=== PATIENT | female | born 1970 | race Caucasian/White ===

== ENCOUNTER → 2023-06-11 | Outpatient (CLI) | payer OTHER, SELFPAY ==
[2023-06-11 12:52] LABS: Absolute Lymphocyte Count 1.85 X10^3/uL (0.83-4.51); Absolute Neutrophil Count 3.8 X10^3/uL (2.0-7.7); Basophil# 0.04 X10^3/uL; Basophil% 0.6 % (0-1); Eosinophil# 0.09 X10^3/uL; Eosinophils% 1.5 % (0-5); Hematocrit 44.8 % (37-47); Hemoglobin 14.1 g/dL (12.0-15.0); Lymphocyte # 1.85 X10^3/ul (0.83-4.51); Lymphocyte % 29.8 % (19-41); Mean Corp Hgb Conc 31.5 g/dL (32-36); Mean Corpuscular Hgb 29.3 pg (27.0-32.0); Mean Corpuscular Volume 93.1 fL (81-99); Mean Platelet Vol. 11.2 fl (6.2-12.0); Monocyte# 0.43 X10^3/uL; Monocyte% 6.9 % (0-10); NRBC Flagged by Analyzer 0 % (0-5); Neutrophil # 3.77 X10^3/uL (2.7-7.7); Neutrophil % 60.9 % (47-70); Platelet Count 338 K/mm3 (150-450); RBC Distribution Width CV 12.8 % (11.6-14.6); RBC Distribution Width SD 44.1 fl (35.1-43.9); Red Blood Count 4.81 M/mm3 (4.2-5.4); White Blood Count 6.2 K/mm3 (4.4-11.0)
[2023-06-11 12:59] LABS: ALB/GLOB Ratio 1.2 RATIO (0.9-2.4); AST(SGOT) 17 U/L (15-37); Alanine Aminotransfer ALT/SGPT 33 U/L (13-56); Albumin, Serum 4.3 g/dL (3.2-5.0); Alkaline Phosphatase 70 U/L (45-117); Anion Gap 4 (5-15); BUN 16 mg/dL (7-18); Calcium,Total 9.6 mg/dL (8.5-10.1); Chloride 105 mmol/L (98-107); EST Glomerular Filtration Rate 79 mL/min (>60); Est Glom Filt Rate - Afr Amer 96 mL/min (>60); Globulin 3.7 g/dL (2.2-4.2); Glucose 93 mg/dL (74-106); Potassium 4.3 mmol/L (3.5-5.1); Sodium Level 139 mmol/L (136-145); Troponin-I HS < 3 pg/mL (3.0-54.0)
[2023-06-11 13:12] LABS: D-Dimer Quantitative (DVT/PE) < 0.27 FEU/ug/m (0.27-0.49)
== END | disposition home or self-care (01) ==
LOC: LABSPEC 12:13
PROVIDERS: PCP Internal Medicine; Referring Provider Internal Medicine; Visit Provider Internal Medicine
DX: R11.0 Nausea (principal)
CPT/HCPCS: 80053; 84484; 85025; 85379

== ENCOUNTER 2024-12-02 05:56 | Day surgery (SDC) | payer OTHER, SELFPAY ==
--- NOTE | 2024-11-29 08:12 | EKG12_ITS ---
Test Reason : PRE OP Blood Pressure : */* mmHG Vent. Rate : 72 BPM Atrial Rate : 72 BPM P-R Int : 152 ms QRS Dur : 94 ms QT Int : 388 ms P-R-T Axes : 80 93 59 degrees QTcB Int : 424 ms Normal sinus rhythm Rightward axis Borderline ECG Confirmed by GERA HUMPHREY, FRANCISCO ([id number]), communications editor EDVIN RIBEIRO ([id number]) on 11/30/2024 7:37:49 AM Referred By: Lexie Vazquez Confirmed By: FRANCISCO BOSS MD
[2024-11-29 08:55] LABS: Hemoglobin 13.4 g/dL (12.0-15.0); Mean Corp Hgb Conc 33.5 g/dL (32-36); Mean Corpuscular Hgb 30.7 pg (27.0-32.0); Mean Corpuscular Volume 91.5 fL (81-99); Mean Platelet Vol. 10.4 fl (6.2-12.0); Platelet Count 331 K/mm3 (150-450); RBC Distribution Width CV 12.7 % (11.6-14.6); RBC Distribution Width SD 42.1 fl (35.1-43.9); Red Blood Count 4.37 M/mm3 (4.2-5.4); White Blood Count 3.5 K/mm3 (4.4-11.0)
[2024-11-29 09:34] LABS: ALB/GLOB Ratio 1.1 RATIO (0.9-2.4); AST(SGOT) 15 U/L (15-37); Alanine Aminotransfer ALT/SGPT 27 U/L (13-56); Albumin, Serum 3.7 g/dL (3.2-5.0); Alkaline Phosphatase 56 U/L (45-117); Anion Gap 3 (5-15); BUN 15 mg/dL (7-18); BUN/Creat Ratio 21.3 RATIO (10-20); Calcium,Total 9.3 mg/dL (8.5-10.1); Chloride 109 mmol/L (98-107); EST Glomerular Filtration Rate 91 mL/min (>60); Est Glom Filt Rate - Afr Amer 111 mL/min (>60); Globulin 3.3 g/dL (2.2-4.2); Glucose 101 mg/dL (74-106); Potassium 4.3 mmol/L (3.5-5.1); Sodium Level 141 mmol/L (136-145)
--- NOTE | 2024-11-29 16:47 | PAT.ANESEVAL ---
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 When Was Last Pacemaker Check QUESTION #4 FULL TEXT: You/Your Family Experience fever (hyperthermia) with Anesthesia Last Oral Intake Last Oral intake: Last Oral Intake NPO since Meds taken in AM with sips of water? Meds patient instructed to take am of surgery PONV PONV - linotype operator: PONV - linotype operator Female Yes 11/18/24 08:31 HX of Motion Sickness No 11/18/24 08:31 HX of N/V After Surgery No 11/18/24 08:31 Non-Smoker Yes 11/18/24 08:31 Duration of Surgery greater No 11/18/24 08:31 than 60 minutes Number of Risk Factors 2 11/18/24 08:31 PONV Score Moderate Risk 11/18/24 08:31 Respiratory Assessment Respiratory Assessment - linotype operator: Respiratory Tract Infection Hx - linotype operator Hx Respiratory Tract Infection No 11/18/24 08:31 STOP Sleep Apnea STOP Sleep Apnea - linotype operator: STOP Sleep Apnea - linotype operator Hx Hypertension No 11/18/24 08:31 Hx Sleep Apnea No 11/18/24 08:31 CPAP BIPAP Do you snore loudly (louder No 11/18/24 08:31 than talking or can be heard Do you often feel tired/ No 11/18/24 08:31 fatigued/ sleepy during daytime? Has anyone observed you stop No 11/18/24 08:31 breathing during sleep? STOP Results Negative 11/18/24 08:31 QUESTION #5 FULL TEXT : Do you snore loudly (louder than talking or can be heard through closed doors)? 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 Specify any problems Hx of Preganancy in last 3 No 11/18/24 08:31 Months Nurse Filling Out Transfusion VLEHVALENCIA 11/18/24 08:31 & Questions: Date: 11/18/24 11/18/24 08:31 Time: 08:41 11/18/24 08:31 Patient unable to answer at this time (ie. 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 History - linotype operator: /Reproductive Hx- linotype operator Hx Now No 11/18/24 08:31 Gestational Age (in weeks): EDC: Hx Hx Para Hx Section SAB PFSH Medical History Post-menopausal Wears glasses Prediabetes High cholesterol Non-smoker Home Medications ?Medication ?Instructions ?Recorded ?Last Taken ?Type ascorbic acid (vitamin C) 1,000 mg 1 g PO DAILY 11/18/24 Unknown History tablet (C-1000) cholecalciferol (vitamin D3) 25 25 mcg PO DAILY 11/18/24 Unknown History mcg (1,000 unit) tablet (Vitamin D3) multivitamin (Daily Multi-Vitamin 1 tab PO DAILY 11/18/24 Unknown History tablet) omega 4-tgh-nit-fish oil 1,200 mg 2 cap PO DAILY 11/18/24 Unknown History (144 mg-216 mg) capsule (Fish Oil) Allergy/AdvReac Type Severity Reaction Status Date / Time No Known Allergies Allergy Verified 11/18/24 08:28 Surgical History History of colonoscopy Social History (System 09/25/21 @ 08:39 by Sherie Esparza) Smoking Status: Never smoker Audit: Pertinent Findings Pertinent Findings EKG Perinent findings: November 29, 2024. Normal sinus rhythm. Right axis deviation. Recommendation Anesthesia Recommendation Anesthesia recommendation: OPTIMIZED for anesthesia
[2024-12-02] VITALS (7 sets, daily range): BP systolic 102–111; BP diastolic 70–82; PULSE 66–93; RESP 14–18; TEMP 35.9–36.3; O2SAT 99–100; BMI 22.0
--- NOTE | 2024-12-02 06:46 | PCM.PRE.AN2 ---
ASA Classification* ASA Classification ASA Classification: 2 Assessment & Plan Anesthesia* Anesthesia Assessment Anesthesia Assessment: Discussed sedation and/or anesthesia options, risks, benefits, and alternatives with patient/parents/legal guardian/POA. Questions invited. The patient/parents/legal guardian/POA seems to understand and agrees to proceed with anesthesia plan. Reviewed the physical assessment, medical history, allergy history and patient home medications list prior to surgery/procedure/anesthetic and documented any changes. Performed airway and anesthesia risk assessments. Anesthesia Type Anesthesia Type: MAC Anesthesia Focused Assessment* Temperature: 97.3 F Pulse Rate: 90 Blood Pressure: 106/82 Respiratory Rate: 16 Pulse Ox: 100 Airway Assessment Mouth opens: >3 cm Mallampati Score: II Focused Labs Anesthesia Preop lab: CBC WBC 3.5 K/mm3 (4.4-11.0) L 11/29/24 08:36 11/29/24 RBC 4.37 M/mm3 (4.2-5.4) 11/29/24 08:36 11/29/24 Hgb 13.4 g/dL (12.0-15.0) 11/29/24 08:36 11/29/24 Hct 40.0 % (37-47) 11/29/24 08:36 11/29/24 Plt Count 331 K/mm3 (150-450) 11/29/24 08:36 11/29/24 CHEMISTRY Potassium 4.3 mmol/L (3.5-5.1) 11/29/24 08:36 11/29/24 Sodium 141 mmol/L (136-145) 11/29/24 08:36 11/29/24 BUN 15 mg/dL (7-18) 11/29/24 08:36 11/29/24 Creatinine 0.70 mg/dL (0.55-1.02) 11/29/24 08:36 11/29/24 Glucose 101 mg/dL (74-106) 11/29/24 08:36 11/29/24 TSH 0.87 uIU/mL (0.358-3.74) 07/09/16 10:33 07/09/16 COAG Pre-Assessment Diagnosis/Proposed Procedure Planned Operative Procedure(s): Hysteroscopy,D&C, possible polypectomy with Symphion Anesthesia 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 When Was Last Pacemaker Check QUESTION #4 FULL TEXT: You/Your Family Experience fever (hyperthermia) with Anesthesia Last Oral Intake Last Oral intake: Last Oral Intake NPO since 00:00 12/02/24 06:32 Meds taken in AM with sips of No 12/02/24 06:32 water? 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 Female Yes 11/18/24 08:31 HX of Motion Sickness No 11/18/24 08:31 HX of N/V After Surgery No 11/18/24 08:31 Non-Smoker Yes 11/18/24 08:31 Duration of Surgery greater No 11/18/24 08:31 than 60 minutes Number of Risk Factors 2 11/18/24 08:31 PONV Score Moderate Risk 11/18/24 08:31 Height & Weight Height & Weight: Anesthesia: Height & Weight Height 5 ft 6 in 12/02/24 06:32 Weight: 62 kg 12/02/24 06:32 Body Mass Index (BMI) 22.0 12/02/24 06:32 Respiratory Assessment Respiratory Assessment - space systems operations superintendent: Respiratory Tract Infection Hx - space systems operations superintendent Hx Respiratory Tract Infection No 11/18/24 08:31 STOP Sleep Apnea STOP Sleep Apnea - space systems operations superintendent: STOP Sleep Apnea - space systems operations superintendent Hx Hypertension No 11/18/24 08:31 Hx Sleep Apnea No 11/18/24 08:31 CPAP BIPAP Do you snore loudly (louder No 11/18/24 08:31 than talking or can be heard Do you often feel tired/ No 11/18/24 08:31 fatigued/ sleepy during daytime? Has anyone observed you stop No 11/18/24 08:31 breathing during sleep? STOP Results Negative 11/18/24 08:31 QUESTION #5 FULL TEXT : Do you snore loudly (louder than talking or can be heard through closed doors)? 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 Specify any problems Hx of Preganancy in last 3 No 11/18/24 08:31 Months Nurse Filling Out Transfusion VLEHMAN 11/18/24 08:31 & Questions: Date: 11/18/24 11/18/24 08:31 Time: 08:41 11/18/24 08:31 Patient unable to answer at this time (ie. 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: /Reproductive Hx- space systems operations superintendent Hx Now No 11/18/24 08:31 Gestational Age (in weeks): EDC: Hx Hx Para Hx Section SAB PFSH Medical History Post-menopausal Wears glasses Prediabetes High cholesterol Non-smoker Home Medications ?Medication ?Instructions ?Recorded ?Last Taken ?Type ascorbic acid (vitamin C) 1,000 mg 1 g PO DAILY 11/18/24 12/01/24 History tablet (C-1000) cholecalciferol (vitamin D3) 25 25 mcg PO DAILY 11/18/24 Unknown History mcg (1,000 unit) tablet (Vitamin D3) multivitamin (Daily Multi-Vitamin 1 tab PO DAILY 11/18/24 12/01/24 History tablet) omega 8-mxe-evm-fish oil 1,200 mg 2 cap PO DAILY 11/18/24 Unknown History (144 mg-216 mg) capsule (Fish Oil) Allergy/AdvReac Type Severity Reaction Status Date / Time No Known Allergies Allergy Verified 11/18/24 08:28 Surgical History History of colonoscopy Social History Smoking Status: Never smoker Review of Systems (Anesthesia) ROS Narrative System reviewed and no additional complaints, except as documented.
--- NOTE | 2024-12-02 07:26 | PCM.DC ---
Discharge Instructions Diet Discharge Diet: No restrictions DC O2, CPAP, BIPAP needs Home O2 Discharge instructions: No Dressing / Incision Discharge Activity: May Drive (once you are more than 24 hours out from surgery) and May Shower (once you are more than 24 hours out from surgery) May resume sexual activity in: 1 week (nothing in the vagina and no soaking in water) Weight Bearing Status: Weight bearing as tolerated Lifting Restrictions: none Dressing / Incision Call your doctor if you observe: Fever of 101 or Higher, Coldness, Increased Pain, Numbness or Tingling, Inability to urinate, Inability to have a bowel movement, Using more than 1 pad per hour, Shortness of breath, Dizziness, Fainting spells, Swelling in the ankles, Chest pain, Increased palpitations (irregular heartbeat), Calf discomfort and Uncontrolled pain Follow Up Care Please Follow Up With: Lexie Vazquez DO When: 1-2 week post op Test Results: Test results from this visit will be discussed in further detail at your follow-up appointment, if applicable. Discharge Plan Admission Primary Reason for Your Visit: surgery Attending Provider: Lexie Vazquez Primary Care Provider: Wendy Sherwood Instructions Print Language: Belarusian Discharge Orders/Prescriptions Prescriptions: Continued multivitamin [Daily Multi-Vitamin] Tablet 1 tab PO DAILY omega 7-tfy-pey-fish oil [Fish Oil] 1,200 (144-216) mg capsule 2 cap PO DAILY ascorbic acid (vitamin C) [C-1000] 1,000 mg tablet 1 g PO DAILY cholecalciferol (vitamin D3) [Vitamin D3] 25 mcg (1,000 unit) tablet 25 mcg PO DAILY Referrals / Follow Up: Wendy Sherwood DO [Primary Care Provider] - Disposition Disposition (needs filled in before D/C Order can be placed): Home, Self Care
--- NOTE | 2024-12-02 07:30 | EMB_PTH ---
PATIENT: LORA BHARDWAJ LOC: [facility] [place][id number] AGE/SX: 54/F ROOM: RE12/02/[address]: Dr. Lexie Vazquez DO : 1970 BED: DIS: 12/02/2024 SPEC #: [id number] RECD: 12/02/24 10:59 STATUS: TWAN HAMLIN #: [id number] WILFRED: 12/02/24 07:[address]: Lexie Vazqeuz DEPT: SURGICAL PATHOLOGY RECD BY: Yoanna Downing ENTERED: 12/02/24 11:46 SP TYPE: ENDOM BX/C OTHR DR: Dr. Wendy Sherwood DO Tissues: Endometrium, NOS Procedures: Surgery Specimen Level IV HEADER OPERATION: Hysteroscopy, D&C, polypectomy PRE-OP DIAGNOSIS: Postmenopausal bleeding, possible endometrial polyp TISSUE SUBMITTED: Endometrial polyp and curettings MICROSCOPIC DIAGNOSIS Endometrial polyp and curettings, D&C and polypectomy: Fragments of benign endometrial polyp with cystic changes. Fragments of benign endocervical mucosa. [email or web address].mr 12/05 COMMENT Clinical correlation and appropriate follow up are necessary. MICROSCOPIC DESCRIPTION Slides are reviewed. GROSS DESCRIPTION Received in fixative is one container labeled with the patient's name and designated Endometrial polyp and curettings. The specimen consists of multiple irregular fragments of beckford indurated tissue that in aggregate measure 3 x 2.5 x 0.3 cm. The specimen is totally submitted in one cassette. [email or web address].mr 12/02/2024 TC:0 CPT:73027
[2024-12-02] MEDS: Lidocaine 1% /Epi 1:100 (20ml) 20 ML Vial (07:50)
--- NOTE | 2024-12-02 08:11 | PCM.OPRPT ---
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 Type of Anesthesia: MAC RN Documented Start/Stop Times: Operation Date: 12/02/24 07:30 Case Time Into Pre-Op 12/02/24 06:08 Out of Pre-Op 12/02/24 07:23 Anesthesia Start 12/02/24 07:28 Into Room 12/02/24 07:28 Procedure Start 12/02/24 07:41 Procedure End 12/02/24 08:08 Procedure Start Time: 07:41 Procedure Stop Time: 08:08 Select all DRAINS/GRAFTS/IMPLANTS that apply: None Special Medications: None Estimated Blood Loss: < 20 mL Fluids Replaced: 600 mL deficit Specimen collected: Yes Description of specimen(s) removed: Endometrial curettings Endometrial polyp Description of surgery: The patient was taken to the operating room where MAC anesthesia was found to be adequate. She was prepped and draped in the dorsal lithotomy position using yellowfin stirrups. A weighted speculum was placed in the vagina to expose the cervix. The anterior lip of the cervix was grasped with a single-tooth tenaculum. 5 cc of local was infiltrated circumferentially in the cervix. The cervix was serially dilated to accommodate the Symphion hysteroscope, and the uterus sounded to 7 cm. The Symphion hysteroscope was inserted into the uterus, and uterine cavity was distended with normal saline as distention media. Bilateral tubal ostia were visualized. A long endometrial polyp was noted coming from the left cornua of the uterus and extending down into the endocervical canal. The Symphion resection device was used to resect the endometrial polyp. A minimal amount of the base of the polyp was felt to be remaining due to a broad base and the location of the polyp in the left cornua of the uterus. The endometrium was otherwise atrophic appearing. The Symphion hysteroscope was removed and the endocervical canal was noted to be normal-appearing. A sharp curettage was performed of the uterine cavity. Endometrial polyp and endometrial curettings were sent to pathology for review. Bleeding was scant. All instruments were removed from the vagina. A vaginal sweep was performed. Instrument, sharp, sponge counts were correct. The patient was taken to recovery in stable condition. Surgical Findings: A long endometrial polyp was noted coming from the left uterine cornua with a broad base. Atrophic endometrium. 7 cm uterus. Complications Complications: No Admit VTE Documentation VTE Present on Admission: No VTE Mechan Device Prophylaxis: SCD's
--- NOTE | 2024-12-02 08:25 | PCM.POST.ANE ---
Anesthesia: Postop Eval I Current Vital Signs Temperature: 97.1 F Pulse Rate: 93 Blood Pressure: 111/77 Respiratory Rate: 14 Pulse Ox: 99 Oxygen Delivery Method: Room Air Assessment Airway patent: Yes Spontaneous unlabored respirations: Yes Mental status: Awake and Calm nausea: No Vomiting: No Anesthesia Complication: No Fluid Hydration Crystalloid volume administer (ml): 500 Total IV fluid infused: 500 Progress Note Anesthesia document: Postop Eval 1 completed: Yes
--- NOTE | 2024-12-02 08:29 | POSTOPAN2_ITS ---
Anesthesia Postop Eval I Sum Postop Eval Completion status Anesthesia document: Postop Eval 1 completed: Yes Anesthesia Postop Eval I Summary Anesthesia Postop Eval I Summary: Anesthesia Postop Eval I: Assessment Summary Airway patent Yes 12/02/24 08:26 HEALTHCARE [email or web address] Spontaneous unlabored Yes 12/02/24 08:26 HEALTHCARE [email or web address].JRIV respirations Mental status Awake,Calm 12/02/24 08:26 HEALTHCARE ASSOCIATE.JRIV nausea No 12/02/24 08:26 HEALTHCARE [email or web address].JRIV Vomiting No 12/02/24 08:26 HEALTHCARE [email or web address].[email or web address] Anesthesia Postop Eval I: Fluid Summary Crystalloid volume administer 500 12/02/24 08:26 HEALTHCARE [email or web address].JRIV (ml) Colloids volume administered ( ml) Blood Product volume administered (ml) Total IV fluid infused 500 12/02/24 08:26 HEALTHCARE [email or web address] Anesthesia Postop Eval I: Summary Notes Anesthesia Complication No 12/02/24 08:26 [email or web address] [email or web address] Anesthesia Complication Comment: Post-operative progress note Anesthesia: Postop Eval II Evaluation Mental status: Awake Pain Level: 0 nausea: No Vomiting: No
--- NOTE | 2024-12-02 08:29 | PCM.POSTANE2 ---
Anesthesia Postop Eval I Sum Postop Eval Completion status Anesthesia document: Postop Eval 1 completed: Yes Anesthesia Postop Eval I Summary Anesthesia Postop Eval I Summary: Anesthesia Postop Eval I: Assessment Summary Airway patent Yes 12/02/24 08:26 [email or web address] Spontaneous unlabored Yes 12/02/24 08:26 [email or web address] [email or web address] respirations Mental status Awake,Calm 12/02/24 08:26 LEAF [email or web address] nausea No 12/02/24 08:26 LEAF [email or web address] Vomiting No 12/02/24 08:26 LEAF [email or web address] Anesthesia Postop Eval I: Fluid Summary Crystalloid volume administer 500 12/02/24 08:26 LEAF [email or web address] (ml) Colloids volume administered ( ml) Blood Product volume administered (ml) Total IV fluid infused 500 12/02/24 08:26 [email or web address] Anesthesia Postop Eval I: Summary Notes Anesthesia Complication No 12/02/24 08:26 LEAF [email or web address] Anesthesia Complication Comment: Post-operative progress note Anesthesia: Postop Eval II Evaluation Mental status: Awake Pain Level: 0 nausea: No Vomiting: No
[2024-12-02] MEDS: Acetaminophen 500 MG Tablet 1000 MG PO (08:53)
== END 2024-12-02 09:28 | disposition home or self-care (01) ==
LOC: SDC 05:56 → AC 05:57
PROVIDERS: PCP Internal Medicine; Referring Provider Obstetrics & Gynecology; Visit Provider Obstetrics & Gynecology
PROC: 0UB98ZZ Excision of Uterus, Via Natural or Artificial Opening Endoscopic (ICD-10-PCS; CPT 58558; principal; 2024-12-02 07:15)
DX: N84.0 Polyp of corpus uteri (principal); R93.89 Abnormal findings on diagnostic imaging of other specified body structures; N95.0 Postmenopausal bleeding; E78.00 Pure hypercholesterolemia, unspecified
CPT/HCPCS: 58558; 00952; 36415; 80053; 85027; 86850; 86900; 86901; 88305; 93005; A4216; J2405